=== PATIENT | male | born 1955 | race Two or more races ===

== ENCOUNTER 2016-07-11 10:29 | Day surgery (SDC) | payer BC ==
--- NOTE | ~2016-07-11 | EGD ---
EGD REPORT [facility] [address] [address] NAME: RODOLFO VERDIN : [birth year] STATUS : REG [facility]#: [id number] AGE: 60 ADM/REG DATE : 07/11/16 MR#: [id number] REPORT SERV DATE: 07/11/16 DICTATED BY: ELEANOR CALI DATE: 07/11/16 REPORT STATUS : Draft TRANSCRIBED BY: [facility] DATE: 07/11/16 Pulmonology Patient Name: Rodolfo Verdin Procedure Date: 07/11/2016 11:53 AM Date of : 1955 Attending MD: NICOLE CALI MD Procedure Date No Time: 07/11/2016 Procedure: EBUS Indications: Mediastinal adenopathy Providers: NICOLE CALI MD Referring MD: CESAR FIGUEROA Medicines: Lidocaine 2% 20 mL Complications: No immediate complications Procedure: Pre-Anesthesia Assessment: - A History and Physical has been performed. Patient meds and allergies have been reviewed. The risks and benefits of the procedure and the sedation options and risks were discussed with the patient. All questions were answered and informed consent was obtained. Patient identification and proposed procedure were verified prior to the procedure by the physician and the nurse in the pre-procedure area in the procedure room. Mental Status Examination: alert and oriented. Airway Examination: normal oropharyngeal airway. Respiratory Examination: clear to auscultation. CV Examination: normal and RRR, no murmurs, no S3 or S4. ASA Grade Assessment: III - A patient with severe systemic disease. After reviewing the risks and benefits, the patient was deemed in satisfactory condition to undergo the procedure. The anesthesia plan was to use general anesthesia. Immediately prior to administration of medications, the patient was re-assessed for adequacy to receive sedatives. The heart rate, respiratory rate, oxygen saturations, blood pressure, adequacy of pulmonary ventilation, and response to care were monitored throughout the procedure. The physical status of the patient was re-assessed after the procedure. After obtaining informed consent, the BF [id number] was introduced through the mouth, via laryngeal mask airway and advanced to the tracheobronchial tree. the Bronchoscope was introduced through the mouth, via laryngeal mask airway and advanced to the tracheobronchial tree. The procedure was accomplished without difficulty. The patient tolerated the procedure well. EGD REPORT [address] [address] NAME: RODOLFO VERDIN : [birth year] STATUS : REG [facility] PAT#: [id number] AGE: 60 ADM/REG DATE : 07/11/16 MR#: [id number] REPORT SERV DATE: 07/11/16 DICTATED BY: ELEANOR CALI DATE: 07/11/16 REPORT STATUS : Draft TRANSCRIBED BY: [employer] DATE: 07/11/16 Findings: The laryngeal mask airway is in normal position. The vocal cords move normally with breathing. The subglottic space is normal. The trachea is of normal caliber. The renita is sharp. The tracheobronchial tree was examined to at least the first subsegmental level. Bronchial mucosa and anatomy are normal; there are no endobronchial lesions, and no secretions. EBUS TBNA of lymph node level 11L x 4passes for cytology EBUS TBNA of lymph node level 7 x 14 passes for cytology EBUS TBNA of lymph node level 11R x 14 passes for cytology Impression: Rapid On-Site Evaluation (SUJEY): Preliminary cytology is suggestive of a benign lesion (final results are pending). Recommendation: - Await test results. - Chest X-ray. Attending Participation: I personally performed the entire procedure. NICOLE CALI MD 07/11/2016 2:11 PM This report has been signed electronically. Number of Addenda: 0 Note Initiated On: 07/11/2016 11:53 AM [address] [address]
--- NOTE | ~2016-07-11 | CN ---
Consultation Report [facility] [address] [place]. [address] NAME: RODOLFO VERDIN : [birth year] STATUS : [facility]#: [id number] AGE: 60 ADM/REG DATE : 07/11/16 MR#: [id number] REPORT SERV DATE: 07/15/16 DICTATED BY: ABHISHEK CALI DATE: 07/12/16 REPORT STATUS : Draft TRANSCRIBED BY: YVETTE DATE: 07/12/[address] SOURAV RIVERA, THANK YOU FOR REQUESTING MY OPINION REGARDING EVALUATION AND MANAGEMENT OF MR. RODOLFO VERDIN'S NEW FDG-AVID MEDIASTINAL LYMPHADENOPATHY. MR. RODOLFO VERDIN IS A PLEASANT GENTLEMAN WITH A SIGNIFICANT PAST MEDICAL HISTORY OF ANEMIA, CROHN'S DISEASE, HISTORY OF NON-HODGKIN LYMPHOMA, STATUS POST FIRST-LINE CHEMOTHERAPY, WHO PRESENTS TO [facility] WITH AN ABNORMAL PET SCAN. PET SCAN ON 06/24/2016 DEMONSTRATES SLIGHTLY PROGRESSED HILAR UPTAKE IN THE RIGHT INFRAHILAR REGION. OTHERWISE, HILAR AND MEDIASTINAL UPTAKE IS NOT SIGNIFICANTLY CHANGED. QUESTIONABLY RELATED TO THE PATIENT'S GRANULOMATOUS DISEASE AND/OR KNOWN LYMPHOMA. NO EVIDENCE OF NEW LYMPHADENOPATHY WAS NOTED IN THE NECK, CHEST, ABDOMEN, AND PELVIS AT THIS TIME. EXTENSIVE COLONIC UPTAKE IS LIKELY RELATED TO PHYSIOLOGICAL INFLAMMATORY TYPE PROCESS GIVEN ITS DISTRIBUTION. HE HAS A SLIGHTLY ASYMMETRIC TONSILLAR UPTAKE, MAY ALSO BE INFLAMMATORY. THE PATIENT'S HISTORY IS SIGNIFICANTLY LIMITED DUE TO THE LANGUAGE BARRIER. HIS DAUGHTER TRANSLATED FOR MUCH OF THE CONVERSATION. THE PATIENT DENIES ANY SIGNIFICANT HISTORY OF SHORTNESS OF BREATH. HE DOES HAVE TYPICAL SHORTNESS OF BREATH WITH EXERTION, WELL LOCALIZED TO THE CHEST, NONRADIATING WITH NO SIGNIFICANT ALLEVIATING OR EXACERBATING FACTORS. HE FIRMLY DENIES ANY NIGHT SWEATS, FEVERS, CHILLS, CHEST PAIN, OR PALPITATIONS. DATE OF CONSULTATION: REVIEW OF SYSTEMS: A detailed 14-point review of systems was attempted and limited by the patient's language barrier, he is only Bel[place]ian speaking. PAST MEDICAL HISTORY: 1. Anemia. 2. Crohn's disease. 3. Iron deficiency anemia. 4. Vitamin B12 deficiency. 5. Non-Hodgkin lymphoma. PAST SURGICAL HISTORY: As above. FAMILY HISTORY: Father is alive at age 92 and is healthy. Mother at age 82, she had kidney failure, and he has four brothers and one sister, who are all healthy. SOCIAL HISTORY: The patient did smoke, but smoked approximately 20 years ago. He denies any significant history of alcohol or illicit drug abuse. He has been for 30 years, and he has a son at age 34 and two daughters ages 28 and 20. One of his daughters is present by his bedside. The patient works at the [employer] in [place], [place]. Consultation Report [address] [address] NAME: RODOLFO VERDIN : [birth year] STATUS : [facility] PAT#: [id number] AGE: 60 ADM/REG DATE : 07/11/16 MR#: [id number] REPORT SERV DATE: 07/15/16 DICTATED BY: ABHISHEK CALI DATE: 07/12/16 REPORT STATUS : Draft TRANSCRIBED BY: YVETTE DATE: 07/12/16 ALLERGIES: NO KNOWN DRUG ALLERGIES. HOME MEDICATIONS: Reviewed and located in the paper chart. PHYSICAL EXAMINATION: VITAL SIGNS: Reviewed and located in the paper chart. GENERAL: No acute distress. Able to communicate in full paragraphs at a time. HEENT: Normocephalic and atraumatic. Pupils equal, round, and reactive to light and accommodation. Posterior oropharynx is clear. NECK: No JVD. No LAD. Trachea midline. CARDIOVASCULAR: Regular rate and rhythm. S1 and S2 present. LUNGS: Clear to auscultation bilaterally. ABDOMEN: Nontender, nondistended, soft. Positive bowel sounds. EXTREMITIES: No clubbing, cyanosis, or edema. SKIN: No new rashes, lesions, or ulcers. PSYCHIATRIC: Alert and oriented x3. Appropriate mood and affect. Appropriate insight and judgment. NEUROLOGIC: 5/5 strength in upper and lower extremities. Cranial nerves 2 through 12 intact. Gait not tested. DTRs not performed. LABORATORY DATA: 1. PET-CT scan at [facility] was pushed in the PAC system and personally reviewed. There is slightly progressed hilar uptake in the right infrahilar region. Otherwise, hilar and mediastinal uptake is not significantly changed. Questionably related to the patient's granulomatous disease and/or lymphoma. 2. No evidence of new lymphadenopathy anywhere else including his neck, chest, abdomen, and pelvis at this time. 3. Extensive colonic uptake is likely related to the patient's new diagnosis of Crohn's, but could be related to physiologic uptake. 4. Slightly asymmetric tonsillar uptake, may also be inflammatory. ASSESSMENT AND PLAN: Mr. Rodolfo Verdin is a pleasant, [place]arusian-speaking gentleman with a significant past medical history of non-Hodgkin lymphoma. Status post first-line chemotherapy, remote history of tobacco abuse and Crohn's, who presents to [facility] for formal evaluation of FDG-avid mediastinal lymph nodes. PET-CT scan on 06/24/2016 demonstrates an increasing FDG avidity in the left AP window with an SUV max of 5.7. Bilateral hilar uptake is noted in the similar pattern from the previous exam. The right infrahilar aspect demonstrates a slightly increased appearance and uptake subjectively with an SUV max of 7.5. Other areas of hilar uptake are not significantly changed. There is evidence of old granulomatous disease with calcified pulmonary nodule in the right lower lobe, and there are no hypermetabolic nodules on this examination. Small lung nodule is not significantly changed from the previous examination with subcentimeter in size. Extensive colonic uptake is likely related to the patient's underlying diagnosis of Crohn's. Slightly asymmetric tonsillar uptake is noted as well. Consultation Report [place] [id number] [facility] [place]. [address] NAME: RODOLFO VERDIN : [birth year] STATUS : [facility]#: [id number] AGE: 60 ADM/REG DATE : 07/11/16 MR#: [id number] REPORT SERV DATE: 07/15/16 DICTATED BY: ABHISHEK CALI DATE: 07/12/16 REPORT STATUS : Draft TRANSCRIBED BY: [employer] DATE: 07/12/16 Mr. Rodolfo Verdin is an extremely pleasant gentleman with abnormal FDG uptake in the mediastinal lymph nodes. The clinical and radiographic presentation could represent sarcoidosis lymphoma recurrence of follicular lymphoma, or metastatic disease from an unknown primary. At this point, Mr. Verdin warrants formal evaluation and biopsy of the mediastinal lymph nodes, especially given the increased uptake and size in the right infrahilar region. We discussed in detail other potential options including continued repeat imaging, CT-guided needle biopsy, thoracic surgical biopsy, or EBUS bronchoscopy. After careful discussion of the risks, benefits, and alternatives to each of these procedures, we agreed to proceed forward with EBUS bronchoscopy. The patient is aware that the procedure is associated with potential life-threatening risks including lung collapse, respiratory failure, and even . In the off chance that the EBUS bronchoscopy, which has a 90% to 94% diagnostic sensitivity, if nondiagnostic, I would then recommend formal evaluation by my thoracic surgeon colleague, Dr. Lonnie Mercado. A summary of my recommendations is as follows: 1. Proceed with EBUS bronchoscopy with flow cytometry as per recommendations of Dr. Osmel Oreilly, the pathologist, who will be involved in this case. He is aware of the previous diagnosis of follicular lymphoma. 2. The patient will require mandatory followup with Dr. Sourav Rivera, and I will make sure that the biopsy results are forwarded. Thank you for allowing me to participate in Mr. Rodolfo Verdin's care. RAMSES/RODOLFOL Abhishek Cali M.D. / [id number] CC: Abhishek Cali M.D.
[2016-07-11 11:26] LABS: BASOPHILS 0.1 %; BASOPHILS ABSOLUTE 0.01 10/3/uL (0.0-0.16); EOSINOPHILS 1.4 %; EOSINOPHILS ABSOLUTE 0.11 10/3/uL (0.0-0.53); HEMATOCRIT 40.6 % (40.0-51.0); HEMOGLOBIN 13.7 g/dL (13.6-17.8); IMMATURE GRANULOCYTES 0.7 %; IMMATURE GRANULOCYTES ABSOLUTE 0.05 10/3/uL (0.0-0.11); LYMPHOCYTES 13.1 %; MANUAL DIFF NO %; MEAN CORPUS HGB CONC 33.7 g/dL (32.0-36.0); MEAN CORPUSCULAR HEMOGLOB 27.6 pg (26.0-34.0); MEAN CORPUSCULAR VOLUME 81.7 fL (80-100); MEAN PLATELET VOLUME 9.1 fL (9.2-13.0); MONOCYTES 5.8 %; MONOCYTES ABSOLUTE 0.44 10/3/uL (0.21-1.20); NEUTROPHILS 78.9 %; NEUTROPHILS ABSOLUTE 6.01 10/3/uL (2.02-8.40); PLATELET COUNT 191 10/3/uL (150-400); RBC DISTRIBUTION WIDTH 16.1 % (12.0-16.0); RED CELL COUNT 4.97 10/6/uL (4.7-6.1); WHITE BLOOD CELLS 7.6 10/3/uL (4.5-10.5)
[2016-07-11 11:37] LABS: INTERNATIONAL NORMAL RATI 1.1 UNITS (-); PARTIAL THROMBO TIME 28.6 SEC (22.5-37.2); PROTIME (NOT ORD) 14.4 SEC (12.0-14.5)
[2016-07-11 12:06] LABS: BUN (BLOOD UREA NITROGEN) 13 MG/DL (6-23); CALCIUM, SERUM 8.8 MG/DL (8.5-10.4); CHLORIDE, SERUM 107 MMOL/L (96-112); CO2 (CARBON DIOXIDE) 28 MMOL/L (24-34); CREATININE 0.89 MG/DL (0.70-1.30); GFR AFRICAN AMERICAN 108 ML/MIN (>=60); GFR NON AFRICAN AMERICAN 94 ML/MIN (>=60); GLUCOSE, SERUM 96 MG/DL (60-99); POTASSIUM, SERUM 3.7 MMOL/L (3.5-5.3); SODIUM, SERUM 143 MMOL/L (135-148)
[2016-10-25] MEDS ORDERED: PENTASA500 MG PO (11:19)
[2016-10-25] MEDS ORDERED: ZANTAC150 MG PO (11:20)
[2016-11-02] MEDS ORDERED: PCET PO (08:25)
== END 2016-07-11 16:15 | disposition home or self-care (01) ==
LOC: DMU 10:29
PROVIDERS: Internal Medicine
PROC: 07974ZX Drainage of Thorax Lymphatic, Percutaneous Endoscopic Approach, Diagnostic (ICD-10-PCS; principal; 2016-07-11 11:30)
PROC: BB4CZZZ Ultrasonography of Mediastinum (ICD-10-PCS; 2016-07-11 11:30)
DX: R59.0 Localized enlarged lymph nodes (principal); C85.90 Non-Hodgkin lymphoma, unspecified, unspecified site; D64.9 Anemia, unspecified; Z98.890 Other specified postprocedural states; Z92.21 Personal history of antineoplastic chemotherapy
CPT/HCPCS: 71010; 80048; 85025; 85610; 85730; 88172; 88173; 88177; 88305; C1725